=== PATIENT | female | born 2000 | race Caucasian/White ===

== ENCOUNTER 2020-08-17 21:20 | Emergency (ER) | payer OTHER ==
[~2020-08-17] VITALS: Ht 152.4 cm; Wt 112.7 kg
[2020-08-17 21:28] VITALS: BP 135/91
[2020-08-17] MEDS ORDERED: acetaminophen 325mg tablet PO ONE (21:50)
[2020-08-17] MEDS ORDERED: amox tr/potassium clavulanate 875/125mg TAB PO ONE (21:50)
[2020-08-17] MEDS ORDERED: AMOX-117 PO (22:04)
== END 2020-08-17 22:16 | disposition home or self-care (01) ==
LOC: ER 21:20
DX: K00.6 Disturbances in tooth eruption (principal); K08.89 Other specified disorders of teeth and supporting structures; Z79.2 Long term (current) use of antibiotics
CPT/HCPCS: 99283